=== PATIENT | female | born 2000 | race Caucasian/White ===

== ENCOUNTER 2024-01-22 11:05 | Emergency (ER) | payer MEDICAID, OTHER ==
[~2024-01-22] VITALS: Ht 160 cm; Wt 82.0 kg
[2024-01-22 11:12] VITALS: O2SAT 100
[2024-01-22] MEDS ORDERED: IBUP-2029 MT (11:56)
[2024-01-22] MEDS: IBUPROFEN 600MG TABLET PO ONE (12:00)
[2024-01-22 12:15] VITALS: BP 108/65; PULSE 71; RESP 16; TEMP 98
== END 2024-01-22 13:35 | disposition home or self-care (01) ==
LOC: ER 11:05
DX: S90.32XA Contusion of left foot, initial encounter (principal); X58.XXXA Exposure to other specified factors, initial encounter; Y93.89 Activity, other specified; Y92.89 Other specified places as the place of occurrence of the external cause; Y99.8 Other external cause status
CPT/HCPCS: 73630; 99283